=== PATIENT | male | born 1950 | race Caucasian/White ===

== ENCOUNTER 2016-10-09 09:35 | Day surgery (SDC) | payer OTHER ==
[2016-10-09] MEDS ORDERED: diphenhydrAMINE 25 MG CAP PO ONE ×2 (09:44→09:51)
[2016-10-09] MEDS ORDERED: DIAZEPAM 5 MG TAB PO ONE (09:44)
[2016-10-09] MEDS ORDERED: FAMOTIDINE 20 MG TAB PO ONE (09:44)
[2016-10-09] MEDS ORDERED: NS 1,000 ML IV ONE (09:44)
[2016-10-09] MEDS ORDERED: ASPIRIN EC 325 MG TAB PO ONE ×2 (09:44→09:52)
[2016-10-09] MEDS ORDERED: FAMOTIDINE 20 MG TAB ONE (09:52)
[2016-10-09] MEDS ORDERED: DIAZEPAM 5 MG TAB ONE (09:52)
[2016-10-09] MEDS ORDERED: fentaNYL 100 MCG/2 ML INJ ONE ×2 (09:53→11:37)
[2016-10-09] MEDS ORDERED: LIDOCAINE 1% 30 ML SDV ONE (09:53)
[2016-10-09] MEDS ORDERED: MIDAZOLAM 2 MG/2 ML VIAL ONE ×2 (09:53→11:37)
[2016-10-09] MEDS ORDERED: VERAPAMIL 5 MG/2 ML VIAL ONE (09:54)
[2016-10-09] MEDS ORDERED: IOPAMIDOL (ISOVUE-370) 150 ML BTL IV ONE ×2 (09:54→11:40)
[2016-10-09] MEDS ORDERED: HEPARIN 10,000 UNIT/10 ML MDV ONE (09:54)
--- NOTE | 2016-10-09 09:59 | CPEKG ---
Heart Rate: 67 RR Interval: 896 P-R Interval: 184 QRSD Interval: 86 QT Interval: 384 QTC Interval: 406 P [place]: 44 QRS [place]: -4 T Wave [place]: -24 EKG Severity - ABNORMAL ECG - EKG Impression: SINUS RHYTHM EKG Impression: NONSPECIFIC T ABNORMALITIES, INFERIOR LEADS Electronically Signed By: Jorje Acosta 09-Oct-2016 10:54:28
[2016-10-09 10:22] LABS: % IMMATURE GRANULYOCYTES 0.2 % (0.0-1.1); ABSOLUTE IMMATURE GRANULOCYTES 0.01 10^3/uL (0.00-0.10); ADD DIFF? NO; ADD MORPH? NO; ADD SCAN? NO; ATYPICAL LYMPHOCYTE FLAG 10 (0-99); FRAGMENT RBC FLAG 0 (0-99); LEFT SHIFT FLG 0 (0-99); LIPEMIA HEMOLYSIS FLAG 90 (0-99); MEAN CELL HEMOGLOBIN 30.9 pg (27.9-34.1); MEAN CELL VOLUME 90.7 fL (81.5-99.8); MEAN PLATELET VOLUME 9.4 fL (8.7-11.7); PLATELET CLUMPS FLAG 0 (0-99); PLATELET COUNT 232 10^3/uL (150-400); RED BLOOD CELL COUNT 5.51 10^6/uL (4.40-6.38); RED CELL DISTRIBUTION WIDTH 13.1 % (11.5-15.2)
[2016-10-09 10:32] LABS: ANION GAP 12 mEq/L (8-16); CALCIUM 9.2 mg/dL (8.5-10.4); CARBON DIOXIDE 25 mEq/l (22-31); CHLORIDE 109 mEq/L (97-110); CHOLESTEROL 123 mg/dL (140-220); CHOLESTEROL/HDL RATIO 2.62 RATIO (1.00-4.97); CREATININE 0.7 mg/dL (0.7-1.3); GLOMERULAR FILTRATION RATE > 60; GLUCOSE 85 mg/dL (70-100); HIGH DENSITY LIPOPROTEIN 47 mg/dL (40-65); INR 1.04 (0.83-1.16); LDL/HDL RATIO 1.32 RATIO (1.00-3.64); LOW DENSITY LIPOPROTEIN 62 mg/dL (80-100); MAGNESIUM 1.9 mg/dL (1.6-2.3); NON-HIGH DENSITY LIPOPROTEIN 76 mg/dL (90-129); POTASSIUM 4.4 mEq/L (3.5-5.2); PROTIME(PATIENT) 13.5 SEC (12.0-15.0); SODIUM 146 mEq/L (134-144); TRIGLYCERIDE 74 mg/dL (40-150); VERY LOW DENSITY LIPOPROTEINS 14 mg/dL (8-25)
--- NOTE | 2016-10-09 11:55 | PDDXCAT ---
Diagnostic Cath Note - . Date: 10/09/16 Intervention: None Director Emergency Department: Dr. Terence Mohan Indication: Non-sustained ventricular tachycardia on MPI study, family history of premature cardiac events, frequent PVCs. *Procedure Access: right radial artery Procedure: left heart catheterization, coronary angiography, left ventriculogram *Materials Left Heart Cath size: 5F Left Heart Cath materials: JL3.5, JR4.0, CAPRICE, pigtail *Findings-Left Heart Catheterization LM: 8 mm in size. Bifurcates into an LAD and circumflex system. There is no evidence of flow-limiting disease. LAD: 4 mm in size. There is ostial 50% stenosis of the first and second diagonal vessels. There is a minor muscle bridge in the mid LAD. There is no evidence of flow-limiting disease with DEEDEE III flow throughout. LCX: Dominant left circumflex, ~3.5 mm in size without evidence of flow- limiting disease and DEEDEE III flow throughout. RCA: Non-dominant, ~2.5 mm in size. Maximum luminal stenosis of 45% in the proximal segment via QCA. There is no evidence of flow-limiting disease with DEEDEE III flow throughout. EDP: 21 mmHg LVEF: 65% Wall motion: There are no wall motion abnormalities on LVG. There is no evidence of alexa aneurysm or dissection. The aorta revealed three sinuses of Valsalva. *Summary Complications: None Estimated blood loss: <50ml Closure method: TR Band Assessment: [place] vessel coronary artery disease in a dominant left coronary system without evidence of flow-limiting disease and DEEDEE III flow throughout. There was maximal luminal stenosis of 45% in the proximal right coronary artery as well as serial LAD lesions including a 50% ostial first and second diagonal stenosis. There is a minor muscle bridge in the mid LAD. Intervention was not warranted at the present time. The patient's coronary artery disease should be managed medically including statin therapy to achieve an non-HDL cholesterol < 100 mg/dL. Antiplatelet therapy with ASA is also recommended.
== END 2016-10-09 15:12 | disposition home or self-care (01) ==
LOC: FCATH 09:35
PROVIDERS: ATTEND Internal Medicine Cardiovascular Disease
DX: I49.3 Ventricular premature depolarization (principal); I47.2 Ventricular tachycardia; I25.10 Atherosclerotic heart disease of native coronary artery without angina pectoris; I10 Essential (primary) hypertension; E78.00 Pure hypercholesterolemia, unspecified; Z82.49 Family history of ischemic heart disease and other diseases of the circulatory system
CPT/HCPCS: J1644; J2250; J3010; Q9967